=== PATIENT | male | born 1945 | race Caucasian/White ===

== ENCOUNTER 2017-06-23 08:39 | Day surgery (SDC) | payer OTHER ==
[2017-06-18 08:32] VITALS: Ht 182.9 cm; Wt 93.2 kg
--- NOTE | 2017-06-20 14:54 | HISTORY & PHYSICAL EXAMINATION ---
DATE OF ADMISSION: 06/23/2017 CHIEF COMPLAINT: Right quad tear. HISTORY OF PRESENT ILLNESS: Mr. Lopez is a 72-year-old male who sustained a fall on 04/27/2017. The patient hyperflexed his knee and was taken to the Emergency Room. He was unable to extend his leg. He was found to have a complete right quad tendon rupture. The patient has been in an immobilizer and ambulating with a walker. He takes York 02/11/2005 on a chronic basis. He rates his pain 6/10. He is now scheduled for right quad tendon repair. PAST MEDICAL HISTORY: History of CT with 2 stents, chronic kidney disease stage III, acid reflux. He denies diabetes or DVT. PAST SURGICAL HISTORY: Lumbar laminectomy, tonsillectomy, carotid endarterectomy. SOCIAL HISTORY: The patient denies alcohol or tobacco use. He lives in a single story home with his and is retired. FAMILY HISTORY: Negative for DVT. MEDICATIONS: Aspirin 81 mg, lisinopril 20 mg, famotidine 20 mg b.i.d., pravastatin 40 mg daily, Carvedilol 3.125 mg b.i.d., allopurinol 100 mg b.i.d., furosemide 40 mg daily, hydrocodone 10/325, fish oil, flaxseed oil. ALLERGIES: MORPHINE AND PENICILLIN. REVIEW OF SYSTEMS: See HPI. Ten other systems reviewed, all negative. PHYSICAL EXAMINATION: VITAL SIGNS: Height 6 foot 0. VITAL SIGNS: Weight 215 pounds, BMI 29. GENERAL: This is a well-developed, well-nourished male who is alert and oriented x3. Mood and affect are appropriate. HEENT: Normocephalic, atraumatic. Mucous membranes are moist and intact. NECK: Supple without lymphadenopathy. HEART: Regular rate and rhythm without murmurs, rubs or gallops. LUNGS: Clear to auscultation without wheezes or rhonchi. ABDOMEN: Soft and nontender. Bowel sounds are equal and active. EXTREMITIES: No ecchymosis, redness or warmth. He has mild effusion. He has palpable defect in the quad. He has no knee extension, active knee extension and flexion was deferred due to his injury. He is neurovascularly intact. IMPRESSION: Right quad tendon rupture. PLAN: The patient will be admitted for a right quad tendon repair, possible allograft. The patient has history of chronic York ; we will likely resume this postoperatively. He has chronic renal failure and should avoid NSAIDs. The patient had a recent GI bleed, recent hemoglobin was 8.8 last week. Earlier this week, hemoglobin was 10.0. The patient will need close monitoring postoperatively and is aware he may require transfusion.
[~2017-06-23] VITALS: Ht 182.9 cm; Wt 93.2 kg
[~2017-06-23 08:39] MED LIST: ACETAMINOPHEN 500 MG TAB PO SCH; ALLO300T2 PO; ARANESP INJ; ASPI81TA28 PO; ATROPINE SULFATE 0.1 MG/ML 5ML SYR IV PRN; CARV3.122 PO; CLINDAMYCIN 600 MG/54 ML D5W 54 ML IV SCH; CYAN10005 PO; CeleBREX 200 MG CAP PO SCH; DICL-201 PO; ERGO500037 PO; EpHEDrine SULFATE INJ 50 MG/ML AMP IV PRN; FAMO20TA11 PO; FERR1TAB13 PO; FLAX10007 PO; FOLI800T17 PO; FRS/40 PO; HYDR-5806 PO; HYDROmorphone INJ 2 MG/ML SYR/VIAL IV PRN; LISI-725 PO; OMEG500C2 PO; ONDANSETRON INJ 2 MG/ML 2 ML VIAL IV PRN; PHENYLEPHRINE 100MCG/ML 5ML SYR IV PRN; PRVC/40 PO; ROPIVACAINE 0.5% 5 MG/ML 30 ML VIAL ONE; ROPIVACAINE 5MG/ML 30 ML 150 MG, BUPIVACAINE 0.5% MPF INJ 30 ML, EpINEphrine HCL INJ 0.... INFIL SCH; SODIUM CHLORIDE 0.9% 1000ML 1,000 ML IV SCH
[2017-06-23 09:40] VITALS: BP 148/85; PULSE 93; TEMP 36.9; O2SAT 98
[2017-06-23 11:15] LABS: BASO % 0.3 %; EOS % 3.8 %; HEMATOCRIT 30.5 % (42-52); HEMOGLOBIN 9.1 g/dL (14.0-18.0); LYMPH % 17.6 %; LYMPH ABS # 1.16 K/uL (1.2-3.4); MEAN CELL VOLUME 84.5 fL (80-100); MEAN CORPUSCULAR HEMOGLOBIN 25.2 pg (25-34); MEAN PLATELET VOLUME 10.4 fL (7.4-10.4); MONO % 6.2 %; NEUT % 71.8 %; NEUT ABS # 4.74 K/uL (1.4-6.5); PLATELET COUNT 215 K/uL (130-400); RED CELL DISTRIBUTION WIDTH SD 82.7 fL (36.4-46.3)
[2017-06-23 11:16] LABS: BASO ABS # 0.02 K/uL (0-0.2); EOS ABS # 0.25 K/uL (0-0.5); IG# 0.02 K/uL (0.00-0.02); MONO ABS # 0.41 K/uL (0.11-0.59)
[2017-06-23 11:18] LABS: MEAN CORPUSCULAR HGB CONC 29.8 g/dl (32-36)
[2017-06-23] MEDS ORDERED: FENTANYL CITRATE INJ 50 MCG/1 ML 2 ML VIAL ONE ×3 (11:47→14:08)
[2017-06-23] MEDS ORDERED: MIDAZOLAM HCL 1 MG/ML 2ML VIAL ONE (11:47)
[2017-06-23] MEDS ORDERED: PROPOFOL IV EMULSION 10 MG/ML 20 ML VIAL IV ONE ×2 (11:47→12:06)
--- NOTE | 2017-06-23 11:53 | History & Physical Bridge Note ---
H&P Re-Evaluation Bridge Note: I have examined the patient, reviewed the History & Physical and in the interval since the performance of the History & Physical I have noted the following changes of clinical significance: We touched base with the patient's GI physician Dr. Whitt due to her recent hospital admission of GI bleed, per GI team, may proceed with surgical repair of right quad tendon, no contraindication for 81mg aspirin post op for DVT ppx.
[2017-06-23] MEDS ORDERED: CISATRACURIUM BESYLATE IV SOLN 2 MG/ML 10 ML VIAL ONE (12:27)
[2017-06-23] MEDS ORDERED: BACITRACIN 50000 UNIT VIAL ONE (12:27)
[2017-06-23] MEDS ORDERED: ONDANSETRON INJ 2 MG/ML 2 ML VIAL ONE (12:27)
[2017-06-23] MEDS ORDERED: NEOSTIGMINE METHYLSULFATE 5 MG/5 ML SYR ONE (13:00)
[2017-06-23] MEDS ORDERED: GLYCOPYRROLATE INJ 0.2 MG/ML VIAL ONE (13:00)
[2017-06-23] MEDS ORDERED: PHENYLEPHRINE 100MCG/ML 5ML SYR ONE (13:00)
[2017-06-23] MEDS ORDERED: ASPI81TA28 PO (13:10)
--- NOTE | 2017-06-23 13:14 | Discharge Instructions ---
Discharge Instructions Date of Service Jun 23, 2017. Visit Reason for Visit: Right Knee Strain Of Unspecified Quadriceps Muscle Discharge Discharge Diagnosis / Problem: sp right quad tendon repair Discharge Goals Goal(s): Decrease discomfort, Improve function, Increase independence Activity Recommendations Activity Limitations: per Instructions/Follow-up section Anesthesia . Post Anesthesia Instructions: If you have had General Anesthesia or IV Sedation: * Do not drive today. * Resume driving when surgeon permits. * Do not make important decisions or sign legal documents today. * Call surgeon for: 1. Temperature elevations greater than 101 degrees F. 2. Uncontrollable pain. 3. Excessive bleeding. 4. Persistent nausea and vomiting. 5. Medication intolerance (nausea, vomiting or rash). * For nausea and vomiting use only clear liquids such as: tea, soda, bouillon until nausea subsides, then gradually increase diet as tolerated. * If you have any concerns or questions, call your surgeon's office. If physician is unavailable and it is an emergency, call 911 or go to the nearest emergency room. . Instructions / Follow-Up Instructions / Follow-Up ACTIVITY RECOMMENDATIONS: SELF CARE INSTRUCTIONS AFTER TOTAL KNEE REPLACEMENT C. Make walking a part of your daily routine. Be up as much as comfortable with rest periods throughout the day. Rest with leg elevation is very important. Use the ice wrap frequently for the first 3-4 weeks. SPECIAL CARE INSTRUCTIONS: VERY IMPORTANT TO READ AND REVIEW A. There are a few signs you need to watch for after you are home. Call [facility] if you notice any of the followin. Increased severe knee pain. Some pain is expected especially when you exercise. 2. Increased swelling in your leg or knee; pain or swelling of the calf muscle in either lower leg. 3. Any fluid drainage from the incision. 4. Shortness of breath or chest pain. B. Please call [facility] at if you have any concerns or questions about your operation or recovery. The doctor or his nurse will return your call promptly. C. You must take antibiotics before dental work, bladder, bowel or other surgery. Your doctor will provide you with a permanent care to carry describing this precaution. IMPORTANT: * REMEMBER TO TAKE ASPIRIN, 81 MG, TWICE DAILY FOR 4 WEEKS UNLESS OTHERWISE DIRECTED. THIS IS YOUR BLOOD THINNER. * HIGH RISK PATIENTS MAY BE PRESCRIBED A STRONGER BLOOD THINNER. THIS WILL BE PROVIDED AT DISCHARGE. * CALL IF INCREASED PAIN, REDNESS, DRAINAGE OR FEVER GREATER THAT 101. * KEEP SPLINT CLEAN AND DRY. PLEASE CALL IF YOU ARE EXPERIENCE ANY SIGNIFICANT INCREASE IN PAIN, RUBBING, OR RAW AREAS OF SKIN. FOLLOW UP VISIT: If appointment is not already scheduled: Please call [facility] to make a follow-up appointment for 10-14DAYS after your surgery at . Diet Recommendations Recommended Home Diet: resume previous diet Procedures Procedures Performed: Right Knee: Quadricep Tendon Repair Pending Studies Studies pending at discharge: no Medical Emergencies . Who to Call and When: Medical Emergencies: If at any time you feel your situation is an emergency, please call 911 immediately. . Non-Emergent Contact Non-Emergency issues call your: Surgeon . . "Provider Documentation" section prepared by Dyan Portillo. . [place] Drug Monitoring Program Search Results: patient reviewed within database, no issues identified
[2017-06-23] MEDS ORDERED: SODIUM CHLORIDE 0.9% 1000ML 1,000 ML IV SCH (13:15)
[2017-06-23] MEDS ORDERED: ONDANSETRON INJ 2 MG/ML 2 ML VIAL IV PRN (13:15)
[2017-06-23] MEDS ORDERED: OXYCODONE/ACETAMINOPHEN 5-325 TAB PO PRN (13:15)
[2017-06-23] MEDS ORDERED: OXYC-57 PO (13:57)
--- NOTE | 2017-06-23 13:58 | [facility] Post Operative Brief Note ---
Immediate Operative Summary Operative Date Jun 23, 2017. Pre-Operative Diagnosis Right Knee Quad Tendon Rupture Post-Operative Diagnosis Right Knee Quad Tendon Rupture Procedure(s) Performed Right Knee: Quadricep Tendon Repair Surgeon Dr. Lee Highway Commissioner Surgeon(s) JEANETTE Gipson Estimated Blood Loss 50 ml Findings Consistent with Post-Op Diagnosis Fluids (cc crystalloids) 1 L Specimens none per surgeon Drains None Anesthesia Type MAC Spinal Regional Complication(s) none Disposition Disposition: Recovery Room / PACU
--- NOTE | 2017-06-23 14:57 | DIAGNOSTIC IMAGING REPORT ---
R KNEE 1 OR 2 VIEWS ROUTINE CLINICAL HISTORY: Obtain AP and Lateral, s/p Quad tendon repair, in PACU postoperative evaluation COMPARISON: None. DISCUSSION: Anatomic alignment post quadriceps tendon repair. Minimal degenerative change all major joint compartments. Soft tissue vascular calcification. There is no evidence for soft tissue swelling. IMPRESSION: Anatomic alignment post quadriceps tendon repair. The above report was generated using voice recognition software. It may contain grammatical, syntax or spelling errors. Electronically signed by: Sree Green M.D. 06/23/2017 2:55 PM Dictated Date/Time: 06/23/2017 2:55 PM
--- NOTE | 2017-06-23 14:57 | Anesthesiology Progress Note ---
Anesthesia Post Op Note Date & Time Jun 23, 2017 at 14:57 Vital Signs Pain Intensity: 0 Vital Signs Past 12 Hours Date Time Temp Pulse Resp B/P (MAP) Pulse Ox O2 Delivery O2 Flow Rate FiO2 06/23/17 14:50 36.8 74 16 144/69 98 Room Air 06/23/17 14:40 75 14 165/87 100 Room Air 06/23/17 14:30 74 14 164/89 100 Oxymask 5 06/23/17 14:21 36.9 81 18 153/85 98 Oxymask 10 06/23/17 09:40 36.9 93 20 148/85 (106) 98 Room Air Notes Mental Status: alert / awake / arousable, participated in evaluation Pt Amnestic to Procedure: Yes Nausea / Vomiting: adequately controlled Pain: adequately controlled Airway Patency, RR, SpO2: stable & adequate BP & HR: stable & adequate Hydration State: stable & adequate Anesthetic Complications: no major complications apparent
[2017-06-23 15:03] VITALS: BP 162/69; PULSE 76; TEMP 37; O2SAT 100
[2017-06-23] MEDS ORDERED: HYDR-5806 PO (15:27)
[2017-06-23] MEDS ORDERED: HYDROCODONE/ACETAMI 10/325 TAB PO PRN (15:30)
[2017-06-23 15:33] VITALS: BP 123/60; PULSE 76; TEMP 37; O2SAT 97
[2017-06-23] MEDS ORDERED: HYDROCODONE/ACETAMI 10/325 TAB ONE (15:33)
[2017-06-23 16:03] VITALS: BP 116/64; PULSE 77; TEMP 37; O2SAT 98
--- NOTE | 2017-06-29 16:01 | [facility] Operative Report ---
Operative Report Operative Date Jun 29, 2017. Pre-Operative Diagnosis Right Knee Quad Tendon Rupture Post-Operative Diagnosis Right Knee Quad Tendon Rupture Procedure(s) Performed Right Knee: Quadricep Tendon Repair Surgeon Dr. Lee Supervisor [employer] Surgeon(s) JEANETTE Gipson Estimated Blood Loss 50 ml Findings see dictated op note Fluids 1 L Specimens none per surgeon Drains None Anesthesia Type MAC Spinal Regional Complication(s) none Disposition Recovery Room / PACU Indications A 72-year-old male with delayed presentation, 5 weeks, with right quad tendon rupture. Was readmitted to hospital prior to surgery for recent GI bleed and unable to obtain proper medical clearances till now for surgical repair of right quad tendon. Discussed case with his GI doctor at [facility] and he approved post operative DVT ppx, 81mg ASA BID. I have indicated the patient for repair of right quad tendon, poss allograft, the risks and benefits and complications of the procedure include but are not limited to infection, bleeding, damage to bone, nerves, vessels, surrounding soft tissue, blood clots, loss of function, stiffness, rerupture, need for additional surgery and . The patient wished to proceed with surgery at this time and informed consent was obtained. Appropriate clearances were obtained. Description of Procedure Following induction of spinal anesthesia, a tourniquet was applied to the proximal aspect of the thigh and the patient's right leg was prepped and draped in the usual sterile manner. A timeout was performed and site kassi verified. Limb was exsanguinated with an esmarch bandage and tourniquet was inflated to 300 mmHg. A longitudinal midline incision was made over the anterior knee. Subcutaneous tissue was sharply dissected down to fascia. Electrocautery was used for hemostasis. A large hematoma was met and evacuated. The quad tendon rupture was identified at the proximal pole of the patella with 2cm of retraction. Fibrous scar tissue and frayed tendon fibers at the distal end of the quad tendon was excised till clean healthy tendon remained. The proximal pole of the patella was cleared of all residual tendon fibers and prepped with ronger and curette so that healthy bleeding bed of bone remained for reattachement of the quad tendon. The wound was irrigated with copious amounts of sterile saline solution was bacitracin. Next utilizing two #5 fiberwire sutures a krackow stich was performed at the distal end of the quad tendon proximally and back distally leaving 4 free fiberwire strands. Next utilizing 2.4 drill bit, three bone tunnels were made through the patella. Two suture strands were passed with suture passer through the middle tunnel and one strand through each remaining tunnel. The leg was kept in full extension with a soft bump under the ankle and the suture strands were tightened which reduced the tendon to the previously prepped proximal patella. The fiberwire suture was tied through the bone tunnels and the remaining retinaculum was closed with #1 vicryle sutures in a figure of eight configurations. The knee was injected with Orthomix solution and irrigated once more with sterile saline solution mixed with bacitracin. The subcutaneous closure was performed with 2-0 Vicryl suture and skin closure was performed utilizing fracisco. Sterile dressings were applied at this time, xeroform, 4 x 4s and Webril. The patient was placed in a plaster posterior splint to prevent flexion. The patient tolerated the procedure well and was taken to the PACU in stable condition. Due to the complex nature of the procedure, the entire surgery was performed with the operational assistance of Vitaliy Ortega PA-C. The payroll human resources assistant, under direct supervision, was involved in the actual performance of all aspects of the surgical procedure including hemostasis, tissue retraction and incision, instrument management, patient positioning, and wound closure. I attest to the content of the Intraoperative Record and any orders documented therein. Any exceptions are noted below. I attest to the content of the Intraoperative Record and any orders documented therein. Any exceptions are noted below.
== END 2017-06-23 16:15 | disposition home or self-care (01) ==
LOC: C.ACU 08:39
PROVIDERS: ATTEND Orthopaedic Surgery
DX: S76.111A Strain of right quadriceps muscle, fascia and tendon, initial encounter (principal); W19.XXXA Unspecified fall, initial encounter; I25.2 Old myocardial infarction; N18.3 Chronic kidney disease, stage 3 (moderate); Z95.5 Presence of coronary angioplasty implant and graft; Z79.82 Long term (current) use of aspirin; Z79.899 Other long term (current) drug therapy